=== PATIENT | male | born 1945 | race Caucasian/White ===

== ENCOUNTER 2017-12-02 08:57 | Outpatient (CLI) | payer MEDICARE, OTHER ==
[~2017-12-02] VITALS: Ht 172.7 cm; Wt 94.1 kg
[2017-12-02 10:06] VITALS: BP 124/85; Ht 172.7 cm; Wt 94.1 kg
== END 2017-12-02 18:10 | disposition home or self-care (01) ==
LOC: D.OPS 08:57
DX: D64.9 Anemia, unspecified (principal)

== ENCOUNTER 2018-08-18 08:39 | Outpatient (CLI) | payer MEDICARE, OTHER ==
[~2018-08-18] VITALS: Ht 172.7 cm; Wt 90.9 kg
[2018-08-18 09:47] VITALS: BP 119/73; Ht 172.7 cm; Wt 90.9 kg
== END 2018-08-18 15:30 | disposition home or self-care (01) ==
LOC: D.OPS 08:39
DX: D64.9 Anemia, unspecified (principal); Z01.812 Encounter for preprocedural laboratory examination

== ENCOUNTER 2018-09-07 10:50 | Day surgery (SDC) | payer MEDICARE, OTHER ==
[~2018-09-07] VITALS: Ht 172.7 cm; Wt 90.9 kg
[2018-09-07 11:42] LABS: BASOPHILS 0.3 % (0-2); EOSINOPHILS 0.3 % (0-7); HEMATOCRIT 29.6 % (42.0-54.0); HEMOGLOBIN 9.2 g/dL (13.5-17.5); IMMATURE GRANULOCYTES 0.3 % (0-5); LYMPHOCYTES 10.5 % (15-50); MCH 24.3 pg (26.0-34.0); MCHC 31.1 g/dL (31.0-37.0); MCV 78.3 fL (80.0-100.0); MEAN PLATELET VOLUME 9.3 fL (7.4-10.4); MONOCYTES 9.9 % (2-11); NEUTROPHILS 78.7 % (40-80); PLATELET COUNT 347 10x3/uL (130-400); RBC 3.78 10x6/uL (4.20-6.10); RDW 16.1 % (11.5-14.5); WBC 6.3 10x3/uL (4.8-10.8)
[2018-09-07 11:48] LABS: CALC OSMOLALITY 262 mosm/kg (275-300); CALCIUM 8.9 mg/dL (8.5-10.1); CARBON DIOXIDE 34.5 mmol/L (21.0-32.0); CREATININE - SERUM 0.9 mg/dL (0.6-1.3); GLUCOSE 133 mg/dL (74-106); SODIUM 129 mmol/L (136-145); UREA NITROGEN 19 mg/dL (7-18); eGFR NON AFRICAN AMERICAN 88 mL/min (90-120)
[2018-09-07 11:52] LABS: CHLORIDE - SERUM 86 mmol/L (98-107)
[2018-09-07 11:53] LABS: POTASSIUM - SERUM 2.5 mmol/L (3.5-5.1)
[2018-09-07] MEDS ORDERED: AMIODARONE HCL200 MG PO (12:08)
[2018-09-07] MEDS ORDERED: LYRICA100 MG PO (12:08)
[2018-09-07] MEDS ORDERED: CARAFATE1 G PO (12:14)
[2018-09-07] MEDS ORDERED: IBUPROFEN800 MG PO (12:15)
[2018-09-07] MEDS ORDERED: PROVIGIL200 MG PO (12:16)
[2018-09-07] MEDS ORDERED: CARDURA4 MG PO (12:16)
[2018-09-07] MEDS ORDERED: PRAVASTATIN SOD10 MG PO (12:17)
[2018-09-07] MEDS ORDERED: ZANAFLEX4 MG PO (12:17)
[2018-09-07] MEDS ORDERED: PROTONIX40 MG PO (12:18)
[2018-09-07 12:21] VITALS: BP 143/82; Ht 172.7 cm; Wt 90.9 kg
[2018-09-07] MEDS ORDERED: ELIQUIS5 MG PO (12:28)
[2018-09-07] MEDS ORDERED: TOPROL XL50 MG PO (12:30)
[2018-09-07] MEDS ORDERED: NORVASC10 MG PO (12:31)
[2018-09-07] MEDS ORDERED: BAYER CHEWABLE81 MG PO (12:31)
[2018-09-07] MEDS ORDERED: GLUCOTROL 5 MG T5 MG PO (12:32)
[2018-09-07] MEDS ORDERED: GLUCOPHAGE1000 MG PO (12:32)
[2018-09-07] MEDS ORDERED: FERROUS FUMARA324 MG PO (12:33)
[2018-09-07] MEDS ORDERED: OMEPRAZOLE20 M1 PO (12:33)
[2018-09-07] MEDS ORDERED: KADIAN60 MG PO (12:34)
[2018-09-07] MEDS ORDERED: OXYCONTIN10 MG (12:35)
--- NOTE | 2018-09-07 14:25 | NUR ---
1417 IV DC'D. CATHETER INTACT. NO BLEEDING AT SITE. BANDAID APPLIED.
--- NOTE | 2018-09-09 13:50 | OP ---
PATIENT NAME: MARCIANO HINDS MEDICAL RECORD: [id number] :44 LOCATION:D.OPS ADMISSION DATE: SURGEON: CHANA RUBIO DO DATE OF OPERATION: 09/07/2018 PROCEDURE: Colonoscopy with polypectomy. INDICATIONS FOR PROCEDURE: Anemia and chronic constipation. SCOPE: Olympus video pediatric colonoscope. MEDICATIONS: Propofol 600 mg IV per anesthesia. WITHDRAWAL TIME: 22 minutes. ESTIMATED BLOOD LOSS: Minimal. COMPLICATIONS: None. FINDINGS: Informed consent was given. The patient was made comfortable with the above medication. After reaching an adequate level of sedation by slow IV push, the patient was placed on his left side. A digital rectal examination was performed and revealed an enlarged, firm prostate. The exam was otherwise normal. The endoscope was advanced under direct visualization through the rectum to the cecum, confirmed by the presence of the appendiceal orifice and the ileocecal valve. The endoscope was slowly withdrawn and mucosa was carefully examined. The prep quality was fair in the left side of the colon and transverse colon, but was inadequate in the right colon. There were 2 polyps visualized on today's examination. They were both benign appearing and sessile. They were both located in the sigmoid colon. They both ranged in size from 3-5 mm in diameter. Both were removed using a hot snare. There were no diverticula visualized on today's examination. Retroflexion was performed in the rectum with visualization of grade I internal hemorrhoids without bleeding. The endoscope was withdrawn from the patient. The patient tolerated the procedure well and there were no complications. IMPRESSION: 1. Two sigmoid polyps as described above, removed using a hot snare. 2. Grade I internal hemorrhoids without bleeding. 3. Inadequate prep involving the right side of the colon. PLAN AND RECOMMENDATIONS: 1. Discharge home when recovery parameters are met. 2. Follow up biopsy specimen results. 3. Proceed with upper endoscopy as scheduled. 4. Recommend a high-fiber diet and supplementation of diet with Metamucil one tablespoon daily. 5. MiraLAX one cap b.i.d. to facilitate more regular bowel movements. 6. If bowels do not become more regular with the above regimen, will consider Linzess or Amitiza for more regular bowel movements. 7. Consider repeating colonoscopy in 1-2 years due to the incomplete prep encountered on today's examination. TRANSINT:[id number] Voice Confirmation ID: [id number] DOCUMENT ID: [id number] OPERATIVE REPORT [id number] MARCIANO HINDS NATHAN A DO at 1350 CC: [id number] DICTATION DATE: 09/07/18 1335 HOUSE WRECKER: 09/07/181923 [facility] 09/07/18 [facility] [address] [id number]
== END 2018-09-07 14:26 | disposition home or self-care (01) ==
LOC: D.OPS 10:50
PROVIDERS: Anesthesiology
DX: K63.5 Polyp of colon (principal); K64.0 First degree hemorrhoids; G47.30 Sleep apnea, unspecified; I10 Essential (primary) hypertension; I48.91 Unspecified atrial fibrillation; I25.2 Old myocardial infarction; Z95.5 Presence of coronary angioplasty implant and graft; Z95.1 Presence of aortocoronary bypass graft; Z87.891 Personal history of nicotine dependence; M19.90 Unspecified osteoarthritis, unspecified site; E11.9 Type 2 diabetes mellitus without complications; Z79.1 Long term (current) use of non-steroidal anti-inflammatories (NSAID); Z79.01 Long term (current) use of anticoagulants; Z79.82 Long term (current) use of aspirin; Z01.812 Encounter for preprocedural laboratory examination

== ENCOUNTER → 2018-10-13 09:44 | Outpatient (CLI) | payer MEDICARE, OTHER ==
[~2018-10-13] VITALS: Ht 172.7 cm; Wt 86.4 kg
[~2018-10-13 09:44] MED LIST: AMIODARONE HCL200 MG PO; BAYER CHEWABLE81 MG PO; CARAFATE1 G PO; CARDURA4 MG PO; ELIQUIS5 MG PO; FERROUS FUMARA324 MG PO; GLUCOPHAGE1000 MG PO; GLUCOTROL 5 MG T5 MG PO; IBUPROFEN800 MG PO; KADIAN60 MG PO; LYRICA100 MG PO; NORVASC10 MG PO; OMEPRAZOLE20 M1 PO; OXYCONTIN10 MG; PRAVASTATIN SOD10 MG PO; PROTONIX40 MG PO; PROVIGIL200 MG PO; TOPROL XL50 MG PO; ZANAFLEX4 MG PO
[2018-10-13 11:34] VITALS: Ht 172.7 cm; Wt 86.4 kg
== END | disposition home or self-care (01) ==
LOC: D.OPS 08:00
PROVIDERS: ATTEND Family Medicine
DX: D64.9 Anemia, unspecified (principal)

== ENCOUNTER 2018-10-21 06:16 | Day surgery (SDC) | payer MEDICARE, OTHER ==
[~2018-10-21] VITALS: Ht 172.7 cm; Wt 90.9 kg
--- NOTE | ~2018-10-21 | OP ---
PATIENT NAME: MARCIANO HINDS MEDICAL RECORD: [id number] :44 LOCATION:[facility] ADMISSION DATE: SURGEON: CHANA RUBIO DO DATE OF OPERATION: 10/21/2018 PROCEDURE: EGD with biopsies. INDICATIONS FOR PROCEDURE: Anemia and occult blood in stools. SCOPE: Tectura video gastroscope. MEDICATIONS: Propofol 200 mg IV per anesthesia. ESTIMATED BLOOD LOSS: Minimal. COMPLICATIONS: None. FINDINGS: Informed consent was given. The patient was made comfortable with the above medication. After reaching an adequate level of sedation by slow IV push, the patient was placed on his left side. The endoscope was advanced under direct visualization through the mouth to the second portion of the duodenum. The entire esophagus appeared normal. At the GE junction, there were changes consistent with LA class A reflux-induced esophagitis. The endoscope was advanced beyond the GE junction into the stomach where a large amount of retained food was visualized. Appearances would be consistent with gastroparesis. This limited visualization of the gastric mucosa. Retroflexion was performed. The cardia and fundus appeared normal. As the endoscope was advanced down to the antrum, there was some mild erythema and granularity within the stomach consistent with possible gastritis. Random cold forceps biopsies were taken to submit for histopathology and to rule out the presence of H. pylori. The endoscope was advanced beyond the pylorus into the duodenum. There were no ulcers or erosions within the duodenum, but there appeared to be some villous flattening in the duodenal bulb as well as the second portion of the duodenum. Multiple cold forceps biopsies were taken to submit for histopathology. The endoscope was then withdrawn from the patient. The patient tolerated the procedure well and there were no complications. IMPRESSION: 1. LA class A reflux-induced esophagitis. 2. Significant food retention consistent with gastroparesis. 3. Mild gastritis. 4. Duodenitis. PLAN AND RECOMMENDATIONS: 1. Discharge home when recovery parameters are met. 2. Follow up biopsy specimen results. If there are abnormalities within the biopsies of the duodenum, this could explain some difficulty with oral iron absorption, which could lead to anemia or at least contribute to his anemia. 3. GERD diet and reflux precautions. 4. Continue current medications. 5. Follow up with Dr. Yoo as scheduled. TRANSINT:[id number] Voice Confirmation ID: [id number] DOCUMENT ID: [id number] OPERATIVE REPORT [id number] MARCIANO HINDS NATHAN A DO CC: [id number] DICTATION DATE: 10/21/1850 STUDENT ADVISOR: 10/21/18 09 [facility] [address] [id number]
[2018-10-21 06:52] LABS: BASOPHILS 0.8 % (0-2); EOSINOPHILS 1.1 % (0-7); HEMATOCRIT 29.1 % (42.0-54.0); HEMOGLOBIN 8.4 g/dL (13.5-17.5); IMMATURE GRANULOCYTES 0.3 % (0-5); LYMPHOCYTES 17.7 % (15-50); MCHC 28.9 g/dL (31.0-37.0); MCV 79.7 fL (80.0-100.0); MEAN PLATELET VOLUME 9.1 fL (7.4-10.4); NEUTROPHILS 69.1 % (40-80); PLATELET COUNT 303 10x3/uL (130-400); RBC 3.65 10x6/uL (4.20-6.10); WBC 6.6 10x3/uL (4.8-10.8)
[2018-10-21 07:14] LABS: ALBUMIN 2.9 g/dL (3.4-5.0); ALKALINE PHOSPHATASE 100 U/L (46-116); ALT (SGPT) 22 U/L (10-68); BILIRUBIN - TOTAL 0.25 mg/dL (0.2-1.3); CALC OSMOLALITY 269 mosm/kg (275-300); CALCIUM 8.8 mg/dL (8.5-10.1); CARBON DIOXIDE 29.6 mmol/L (21.0-32.0); CHLORIDE - SERUM 95 mmol/L (98-107); GLUCOSE 120 mg/dL (74-106); POTASSIUM - SERUM 4.4 mmol/L (3.5-5.1); PROTEIN - SERUM 7.2 g/dL (6.4-8.2); SODIUM 134 mmol/L (136-145); UREA NITROGEN 16 mg/dL (7-18); eGFR NON AFRICAN AMERICAN 78 mL/min (90-120)
[2018-10-21] MEDS ORDERED: K-DUR20 MEQ (07:23)
[2018-10-21 07:44] VITALS: BP 110/74; Ht 172.7 cm; Wt 90.9 kg
--- NOTE | 2018-10-21 09:24 | NUR ---
DC INSTRUCTIONS GIVEN TO PT/FAMILY. STATE UNDERSTANDING. DC'D IV CATH FULLY INTACT.
--- NOTE | 2018-10-21 09:40 | NUR ---
PT LEFT UNIT VIA AT 2440
== END 2018-10-21 09:39 | disposition home or self-care (01) ==
LOC: D.OPS 06:16
PROVIDERS: Anesthesiology; ATTEND Internal Medicine Gastroenterology
DX: K21.0 Gastro-esophageal reflux disease with esophagitis (principal); K29.70 Gastritis, unspecified, without bleeding; K29.80 Duodenitis without bleeding; Z01.812 Encounter for preprocedural laboratory examination

== ENCOUNTER 2019-01-01 14:06 | Outpatient (CLI) | payer MEDICARE, OTHER ==
[~2019-01-01] VITALS: Ht 174 cm; Wt 95.5 kg
[~2019-01-01 14:06] MED LIST changes: +K-DUR20 MEQ
[2019-01-01 15:08] VITALS: BP 119/78; Ht 174 cm; Wt 95.5 kg
--- NOTE | 2019-01-01 18:46 | NUR ---
FIRST UNIT PRBC'S FINISHED TRANSFUSING, PATIENT TOLERATING WITHOUT ANY COMPLAINTS, DENIES SHORTNESS OF BREATH OR CHEST PAIN
--- NOTE | 2019-01-01 20:33 | NUR ---
SECOND UNIT PRBC'S FINISHED TRANSFUSING, PATIENT DENIES SHORTNESS OF BREATH OR CHEST PAIN. PATIENT AMBULATES TO BATHROOM WITHOUT DIFFICULTY AND VOIDS IN TOILET. 30 MINUTE MONITORING PERIOD BEGINNING
== END 2019-01-01 21:03 | disposition home or self-care (01) ==
LOC: D.OPS 14:06
PROVIDERS: ATTEND Family Medicine
DX: D64.9 Anemia, unspecified (principal)